=== PATIENT | male | born 1985 | race Caucasian/White ===

== ENCOUNTER 2016-11-16 08:02 | Emergency (ER) | payer OTHER ==
[~2016-11-16] VITALS: Ht 188 cm; Wt 125.0 kg
[~2016-11-16 08:02] MED LIST: ENDOCET 5-3251 EACH PO; FLEXERIL10 MG PO; MELOXICAM7.5 MG PO; MOTRIN800 MG PO; NEURONTIN300 MG PO; NOHOMEMEDS
[2016-11-16 08:10] VITALS: BP 150/98
[2016-11-16] MEDS ORDERED: NAPROSYN500 MG PO (09:23)
[2016-11-16] MEDS ORDERED: FLEXERIL10 MG PO (09:23)
[2016-11-16] MEDS ORDERED: MEDROL DOSEPAK4 MG PO (09:23)
== END 2016-11-16 09:40 | disposition home or self-care (01) ==
LOC: EME 08:02
DX: M25.551 Pain in right hip (principal); I10 Essential (primary) hypertension; F17.200 Nicotine dependence, unspecified, uncomplicated
CPT/HCPCS: 73502; 99281; 99284; J1100

== ENCOUNTER 2017-02-24 10:02 | Emergency (ER) | payer OTHER ==
[~2017-02-24] VITALS: Ht 188 cm; Wt 122.7 kg
[~2017-02-24 10:02] MED LIST changes: +MEDROL DOSEPAK4 MG PO; +NAPROSYN500 MG PO
[2017-02-24 15:09] VITALS: BP 141/81
== END 2017-02-24 15:11 | disposition home or self-care (01) ==
LOC: EME 10:02
DX: R51 Headache (principal); R11.2 Nausea with vomiting, unspecified; R19.7 Diarrhea, unspecified; Z87.891 Personal history of nicotine dependence
CPT/HCPCS: 70450; 99281; 99284; J0780; J1200; J7030

== ENCOUNTER 2017-09-18 12:41 | Emergency (ER) | payer OTHER ==
[~2017-09-18] VITALS: Ht 188 cm; Wt 129.5 kg
[2017-09-18 16:45] VITALS: BP 133/90
== END 2017-09-18 16:46 | disposition home or self-care (01) ==
LOC: EME 12:41
DX: M54.5 Low back pain (principal); G89.29 Other chronic pain; M47.816 Spondylosis without myelopathy or radiculopathy, lumbar region; M10.9 Gout, unspecified; X50.0XXA Overexertion from strenuous movement or load, initial encounter; Y99.0 Civilian activity done for income or pay; Z87.891 Personal history of nicotine dependence; Z88.5 Allergy status to narcotic agent
CPT/HCPCS: 72100; 99281; 99284; J1885; J8540

== ENCOUNTER → 2017-12-11 | Outpatient (CLI) | payer OTHER | END | disposition home or self-care (01) | LOC: CDC 15:18 | DX: Z01.810 Encounter for preprocedural cardiovascular examination (principal) | CPT/HCPCS: 93000 ==

== ENCOUNTER 2017-12-31 09:32 | Emergency (ER) | payer OTHER ==
[~2017-12-31] VITALS: Ht 188 cm; Wt 130.5 kg
[2017-12-31 11:02] VITALS: BP 150/95
== END 2017-12-31 11:03 | disposition home or self-care (01) ==
LOC: EME 09:32
DX: Z48.811 Encounter for surgical aftercare following surgery on the nervous system (principal); I10 Essential (primary) hypertension; F32.9 Major depressive disorder, single episode, unspecified; F31.9 Bipolar disorder, unspecified; Z87.891 Personal history of nicotine dependence; Z88.5 Allergy status to narcotic agent
CPT/HCPCS: 99281; 99284